=== PATIENT | male | born 1960 | race Caucasian/White ===

== ENCOUNTER 2022-12-22 08:57 | Day surgery (SDC) | payer OTHER ==
[~2022-12-22] VITALS: Ht 165.1 cm; Wt 64.9 kg
[2022-12-22] MEDS ORDERED: diphenhydrAMINE 50 MG/ML VIAL ONE (09:41)
[2022-12-22] MEDS ORDERED: LIDOCAINE 2% 100 MG/5 ML UJET TP ONE (09:42)
[2022-12-22] MEDS ORDERED: MIDAZOLAM 5 MG/5 ML VIAL ONE (09:42)
[2022-12-22] MEDS ORDERED: fentaNYL citrate 0.05 MG/ML VIAL ONE (09:42)
[2022-12-22] MEDS: MIDAZOLAM 5 MG/5 ML VIAL IV ONE (10:07)
[2022-12-22] MEDS: fentaNYL citrate 0.05 MG/ML VIAL IVP ONE (10:08)
[2022-12-22] MEDS: diphenhydrAMINE 50 MG/ML VIAL IVP ONE (10:09)
== END 2022-12-22 11:45 | disposition home or self-care (01) ==
LOC: MDS 08:57 → MMU 08:58 → MDS 11:45
PROVIDERS: ATTEND Internal Medicine Gastroenterology
DX: Z12.11 Encounter for screening for malignant neoplasm of colon (principal); R10.13 Epigastric pain; K29.70 Gastritis, unspecified, without bleeding; K64.8 Other hemorrhoids; K44.9 Diaphragmatic hernia without obstruction or gangrene; J45.909 Unspecified asthma, uncomplicated; Z20.822 Contact with and (suspected) exposure to COVID-19; Z88.6 Allergy status to analgesic agent; Z88.8 Allergy status to other drugs, medicaments and biological substances; Z79.899 Other long term (current) drug therapy
CPT/HCPCS: J1200; J2250; J3010